=== PATIENT | female | born 1955 | race Caucasian/White ===

== ENCOUNTER 2018-02-28 22:13 | Emergency (ER) | payer BC ==
[~2018-02-28] VITALS: Ht 165.1 cm; Wt 77.1 kg
[~2018-02-28 22:13] MED LIST: NAPROSYN500 MG PO; PRILOSEC20 MG PO
[2018-02-28] MEDS ORDERED: ALDACTONE50 MG PO (22:54)
[2018-02-28] MEDS ORDERED: BIOTIN10000 MC1 PO (22:56)
[2018-02-28] MEDS ORDERED: CENTRUM SILVER1 EAC4 PO (22:56)
[2018-02-28 22:57] VITALS: BP 151/91
[2018-02-28] MEDS ORDERED: VITAMIN D3400 UNIT PO (22:57)
== END 2018-02-28 23:05 | disposition home or self-care (01) ==
LOC: M.ERS 22:13
DX: S93.492A Sprain of other ligament of left ankle, initial encounter (principal); I10 Essential (primary) hypertension; Z90.710 Acquired absence of both cervix and uterus; Z87.891 Personal history of nicotine dependence; X50.1XXA Overexertion from prolonged static or awkward postures, initial encounter; Y92.89 Other specified places as the place of occurrence of the external cause; Y93.61 Activity, american tackle football; Y99.8 Other external cause status

== ENCOUNTER → 2020-08-01 | Outpatient (CLI) | payer OTHER ==
[~2020-08-01] MED LIST changes: +ALDACTONE50 MG PO; +BIOTIN10000 MC1 PO; +CENTRUM SILVER1 EAC4 PO; +CYMBALTA60 MG PO; +GLUCOSAMINE &1 EAC1 PO; +LISINOPRIL10 MG PO; +MELATONIN5 MG PO; +NEURONTIN100 MG PO; +OMEPRAZOLE 20 M20 M1 PO; +SPIRONOLACTONE25 M1 PO; +THERA-M TABLET1 EACH PO; +VITAMIN D3400 UNIT PO
== END ==
LOC: M.CT 07:49
PROVIDERS: ATTEND Internal Medicine Cardiovascular Disease
DX: Z13.6 Encounter for screening for cardiovascular disorders (principal); I25.10 Atherosclerotic heart disease of native coronary artery without angina pectoris

== ENCOUNTER → 2020-08-31 | Outpatient (CLI) | payer BC ==
[~2020-08-31] VITALS: Ht 165.1 cm; Wt 94.8 kg
[2020-08-31] VITALS (9 sets, daily range): BP systolic 119–154; BP diastolic 49–87
[2020-08-31 10:06] LABS: HEMATOCRIT 39.4 % (37.0-47.0); HEMOGLOBIN 13.2 gm/dL (12.0-15.0); MCH 30.3 pg (26.0-34.0); MCHC 33.5 g/dL (28.0-37.0); MCV 90.5 fL (80.0-100.0); MPV 7.7 fl. (7.2-11.1); RBC 4.36 mil/uL (4.20-5.00); RDW-CV 14.1 % (10.5-14.5)
[2020-08-31 10:29] LABS: CALCIUM 9.2 mg/dL (8.5-10.1); CREATININE 0.7 mg/dL (0.6-1.3); POTASSIUM 4.5 mmol/L (3.5-5.1)
[2020-08-31 10:52] LABS: APTT 23.4 Seconds (25.0-31.3); PROTIME 10.8 Seconds (9.20-11.50)
--- NOTE | 2020-09-05 17:06 | PATH ---
[address] [place] [address] PATHOLOGY RPT PROCEDURE Name: PREM ARENAS Room: [facility] Guy#: [id number] Admission: 08/31/20 Date of : 55 Discharge: Report #: [id number] Path Case #: [id number] [facility] Accession Number: [id number] . 01 Material submitted: . lung - RIGHT LOWER LUNG MASS. Modifiers: right, lower . 02 Diagnosis: RLL lung mass, image guided biopsies: - Benign pulmonary parenchyma and bronchial mucosa with mild chronic inflammation, negative for granulomas. (LILIANE:pit 09/05/2020) QTP 09/05/2020 1209 Local . 02 Electronically signed: . Yuri Dallas MD, Pathologist NPI- [id number] . 01 Gross description: . The specimen is received in formalin, labeled "Vy Prem, RLL lung" and consists of delicate needle cores of crenshaw tissue measuring 1.1 x 0.3 x 0.1 cm in aggregate which are entirely submitted in A1 for serial and multiple step sections. (SDY; 09/02/2020) SYU/SYU 09/05/2020 1210 Local . 02 Pathologist provided ICD-10: J98.4 . 02 CPT . 567077 Specimen Comment: A courtesy copy of this report has been sent to [phone] Specimen Comment: Report sent to Performed at: [address], [place], [place] [id number] MD Darren Briggs MD Phone: [phone] Performed at: [facility] [address], [place], [place] [id number] MD Yuri Dallas MD Phone: [phone]
== END | disposition home or self-care (01) ==
LOC: M.CT 08:37
PROVIDERS: Radiology Diagnostic Radiology; ATTEND Family Medicine
DX: R91.8 Other nonspecific abnormal finding of lung field (principal); J98.4 Other disorders of lung; R07.9 Chest pain, unspecified; D70.9 Neutropenia, unspecified; I10 Essential (primary) hypertension; M19.90 Unspecified osteoarthritis, unspecified site; M10.9 Gout, unspecified; K21.9 Gastro-esophageal reflux disease without esophagitis; Z98.890 Other specified postprocedural states; Z79.899 Other long term (current) drug therapy; Z90.710 Acquired absence of both cervix and uterus

== ENCOUNTER → 2021-03-28 | Outpatient (CLI) | payer BC ==
[2021-03-28] VITALS (8 sets, daily range): BP systolic 95–134; BP diastolic 61–74
[~2021-03-28] VITALS: Ht 165.1 cm; Wt 94.5 kg
[~2021-03-28] MED LIST changes: +CALCIUM500 MG PO; -GLUCOSAMINE &1 EAC1 PO; +GLUCOSAMINE &1 EACH PO; +LIPITOR20 MG PO; +PRILOSEC OTC20 MG PO; -PRILOSEC20 MG PO
[2021-03-28 09:38] LABS: ABSOLUTE BASOPHILS 0.1 thou/uL (0.0-0.2); ABSOLUTE EOSINOPHILS 0.3 thou/uL (0.0-0.7); ABSOLUTE LYMPHOCYTES 1.6 thou/uL (0.8-5.3); ABSOLUTE MONOCYTES 0.6 thou/uL (0.0-1.2); HEMATOCRIT 38.1 % (37.0-47.0); HEMOGLOBIN 12.9 gm/dL (12.0-15.0); LYMPHOCYTES 21.4 %; MCH 30.5 pg (26.0-34.0); MCV 89.7 fL (80.0-100.0); MONOCYTES 7.4 %; MPV 7.7 fl. (7.2-11.1); NUCLEATED RBCS 0 /100WBC; PLATELET COUNT* 315 thou/uL (150-400); POLYS 66.2 %; RBC 4.24 mil/uL (4.20-5.00); RDW-CV 14.2 % (10.5-14.5); WBC 7.5 thou/uL (4.0-11.0)
[2021-03-28 09:45] LABS: ALBUMIN 3.5 g/dL (3.4-5.0); ALKALINE PHOSPHATASE 82 U/L (46-116); ANION GAP 9 mmol/L (7-16); BUN 19 mg/dL (7-18); CALCIUM 8.6 mg/dL (8.5-10.1); CHLORIDE 102 mmol/L (98-107); CHOLESTEROL 198 mg/dL (<200); CO2 26 mmol/L (21-32); CREATININE 0.7 mg/dL (0.6-1.3); GLUCOSE 101 mg/dL (70-99); HDL CHOLESTEROL 62 mg/dL (>40); LDL CHOLESTEROL 116 mg/dL (<100); POTASSIUM 4.5 mmol/L (3.5-5.1); SGOT 21 U/L (15-37); SGPT 27 U/L (30-65); SODIUM 137 mmol/L (136-145); TC:HDL 3.2 Ratio (Not establshd); TOTAL BILIRUBIN 0.6 mg/dL (<0.1-1.0); TOTAL PROTEIN 7.2 g/dL (6.4-8.2); TRIGLYCERIDE 100 mg/dL (<150); VLDL 20 mg/dL (<40)
[2021-03-28 09:47] LABS: SERUM ASSESSMENT Clear
[2021-03-28 10:14] LABS: APTT 24.8 Seconds (25.0-31.3); PROTIME 10.5 Seconds (9.20-11.50)
--- NOTE | 2021-03-28 13:57 | EKG ---
[place] [address] ELECTROCARDIOGRAM REPORT Name: PREM ARENAS Room: [facility]#: [id number] Admission: 03/28/21 Attend Phys: Emanuel Beavers, Discharge: Date of : 55 Date of Service: 03/28/21 1004 Report #: [id number] THIS REPORT FOR: //name// [facility] Test Date: 2021-03-28 Test Time: 10:04:46 Pat Name: PREM ARENAS Department: Room: Gender: F Procurement Professional: : 1955 Requested By: Emanuel Beavers Order Number: [id number] Linh MD: Xander Robledo Measurements Intervals [place] Rate: 70 P: 55 [place]: 173 QRS: 10 QRSD: 112 T: 56 QT: 397 QTc: 429 Interpretive Statements Sinus rhythm Borderline intraventricular conduction delay Compared to ECG 05/18/2015 11:46:57 no change Electronically Signed On 03-28-2021 13:57:07 CDT by Xander Robledo [email or web address] <ELECTRONICALLY SIGNED> By: Xander Robledo MD, [facility] 03/28/21 1357 1004 1004 Xander Robledo MD, [facility] /EPI
--- NOTE | 2021-03-28 16:52 | CARD ---
[address] [address] CARDIAC CATH REPORT Name: PREM ARENAS Room: [facility].#: [id number] Admission: 03/28/21 Attend Phys: Emanuel Beavers MD Discharge: Date of : 55 Report #: [id number] THIS REPORT FOR: cc: Ofelia Newton Maggie M. DO [place], Michael J. MD LOCATED [facility]IN [facility] ~ APPROVED REPORT Study performed: 03/28/2021 09:34:52 Patient Details Patient Status: Out-Patient Room #: Event Personnel Wood Crew Supervisor- Emanuel Beavers RN- Alice Chandler RN- Anali Jacobs, Scrub- Dann Saldana, Monitor- Maryann Rainey Procedures Performed Access- R Femoral Artery, C w/wo Coronaries, Hemostasis- Mynx Indication Chest pain Risk Factors Coronary Artery Disease Procedure Narrative The patient was brought electively to the Cardiac Catheterization Laboratory and was prepped and draped in a sterile manner. The right femoral was infiltrated with 2% Lidocaine subcutaneous anesthesia. IV conscious sedation was used throughout procedure with appropriate monitoring and was performed in the presence of a registered nurse who was an independent trained observer other than the physician performing the procedure. A 6 Fr [place] sheath was inserted into the right femoral artery. Coronary angiography was performed using coronary diagnostic catheters. The right coronary system was accessed and visualized with a Diagnostic 6 Fr JR 4 catheter. The left coronary system was accessed and visualized with a Diagnostic 6 Fr JL 4 catheter. The left ventricle was accessed and visualized with a Diagnostic 6 Fr Pigtail catheter. Left ventricular/Aortic Valve gradient assessed via catheter pullback. Left ventriculogram was performed in CONTI projection. Pre-demployment femoral angiogram was performed . Closure device was deployed with a Fr 6/7 [place] [address] CARDIAC CATH REPORT Name: PREM ARENAS Room: [facility]#: [id number] Admission: 03/28/21 Attend Phys: Emanuel Beavers MD Discharge: Date of : 55 Report #: [id number] patient tolerated the procedure well and there were no complications associated with the procedure. There was no hematoma. Intraoperative Conscious Sedation Sedation start time: 11:03 Case end Time: 11:13 Fentanyl 50.0 mcg Versed 2.0 mg Fluoro Time: 1.2 minutes Dose: DAP 90656 cGycm2 753 mGy Contrast Type and Amount: Visipaque 115 ml Diagnostic Cath Left Main Left leg coronary artery is normal and short. The left main bifurcates into the left into descending and circumflex coronary arteries. LAD The left anterior descending coronary artery has 20% narrowing proximally and 40% narrowing in the midportion after the takeoff of the first diagonal branch. Diagonal 1 The first diagonal branch is normal. Diagonal 2 The second diagonal branch is normal. Circumflex The circumflex coronary artery has 10% plaquing proximally and 20% plaquing in its midportion. OM1 The first obtuse marginal branch is a very large and branch vessel that is normal. Right Coronary The right coronary artery has 10% plaquing in its proximal and midportion. R PDA A right PDA is normal. RPLV A right posterior lateral LV branch is normal. Left Ventriculography The left ventricle is normal in size with normal contractility. The left ventricular ejection fraction is estimated to be 60-65%. Hemodynamics The aortic pressure is 136/67 mmHg with a mean of 68 mmHg. The left ventricular pressure is 116/10 mmHg with a mean of mmHg. The left ventricular end diastolic pressure is 20 mmHg. Conclusion 1. Coronary artery disease as manifested by minimal plaquing as outlined above. 2. Normal left ventricular systolic function. 3. Mildly elevated left ventricular [place] [address] CARDIAC CATH REPORT Name: PREM ARENAS Room: [facility]#: [id number] Admission: 03/28/21 Attend Phys: Emanuel Beavers MD Discharge: Date of : 55 Report #: [id number] consistent with diastolic dysfunction. Recommendations 1. Continue medical management and aggressive risk factor modification. <ELECTRONICALLY SIGNED> By: Emanuel Beavers MD, [facility] [id number] 51[facility] MD, [facility] /INF
--- NOTE | 2021-03-28 17:18 | H ---
[place] [id number] HISTORY AND PHYSICAL Name: PREM ARENAS Room: [facility].#: [id number] Admission: 03/28/21 Attend Phys: Emanuel Beavers MD Discharge: Date of : 55 Report #: [id number] THIS REPORT FOR: cc: Ofelia Newton Maggie M. DO Liston, Michael J. MD [facility] ~ cc: Ofelia Newton DO DATE OF SERVICE: 03/28/2021 CARDIOLOGY ADMISSION HISTORY AND PHYSICAL INDICATION: Coronary artery disease and chest pain with symptoms concerning for angina. HISTORY OF PRESENT ILLNESS: The patient is a 65-year-old white female with a coronary calcium score of 572. Cardiac risk factors include hyperlipidemia, hypertension and family history of coronary artery disease. She quit smoking many years ago. She did have exertional mid sternal chest pressure associated with shortness of breath, relieved with rest. She does have diaphoresis with this. This has been progressive. PAST MEDICAL HISTORY: 1. Coronary artery disease. 2. Hypertension. 3. Dyslipidemia. FAMILY HISTORY: Positive for coronary artery disease. SOCIAL HISTORY: The patient quit smoking many years ago. She drinks alcohol on occasion. ALLERGIES: CALCIUM AND MILK PRODUCTS. CURRENT MEDICATIONS: Atorvastatin 20 mg daily, calcium supplements daily, Cymbalta 60 mg daily, Neurontin 100 mg b.i.d., glucosamine chondroitin supplement 3 times daily, lisinopril 10 mg daily, melatonin 5 mg at bedtime, Naprosyn 500 mg b.i.d., omeprazole 20 mg daily, spironolactone 25 mg daily, multivitamin 1 tablet daily. REVIEW OF SYSTEMS: A 14-point review of systems positive for chest discomfort and dyspnea. Otherwise, unremarkable. PHYSICAL EXAMINATION: VITAL SIGNS: Stable. Blood pressure was 144/80, pulse 82 and regular. GENERAL: This is a pleasant lady in no distress. [place] [id number] HISTORY AND PHYSICAL Name: PREM ARENAS Room: [facility]#: [id number] Admission: 03/28/21 Attend Phys: Emanuel Beavers MD Discharge: Date of : 55 Report #: [id number] HEENT: Extraocular muscles intact. Mucous membranes moist. NECK: Examination of the neck shows no jugular venous distention. There are no carotid bruits. CHEST: Reveals clear lung palacios. CARDIAC: Reveals a regular rhythm with normal S1 and S2. I do not appreciate gallop or murmur. ABDOMEN: Reveals normal bowel sounds. The abdomen is soft, nontender. EXTREMITIES: Shows no clubbing, cyanosis or edema. IMPRESSION AND RECOMMENDATIONS: 1. Coronary artery disease with progressive symptoms suggesting progressive angina. We will proceed with coronary angiography. Further intervention pending those results. 2. Hypertension, presently well controlled on current regimen. 3. Dyslipidemia. Continue statin agent. Follow up fasting lipid profile in the next few months. 4. Family history of coronary artery disease as outlined above. <ELECTRONICALLY SIGNED> By: Emanuel Beavers MD, FACC 03/28/21 1718 0842 [id number] Beavers MD, FACC /nt
== END | disposition home or self-care (01) ==
LOC: M.CL 02-21 10:00
PROVIDERS: ATTEND Internal Medicine Cardiovascular Disease
DX: R07.9 Chest pain, unspecified (principal); I25.10 Atherosclerotic heart disease of native coronary artery without angina pectoris; I10 Essential (primary) hypertension; E78.5 Hyperlipidemia, unspecified; Z98.890 Other specified postprocedural states; Z79.899 Other long term (current) drug therapy; Z87.891 Personal history of nicotine dependence; Z82.49 Family history of ischemic heart disease and other diseases of the circulatory system; Z20.822 Contact with and (suspected) exposure to COVID-19